=== PATIENT | female | born 1985 | race Caucasian/White ===

== ENCOUNTER 2024-11-17 21:27 | Emergency (ER) | payer SELFPAY ==
[2024-11-17 21:49] VITALS: BP 138/98; PULSE 83; RESP 20; TEMP 36.1; O2SAT 100; BMI 24.3
--- NOTE | 2024-11-17 21:53 | PC.NURSE ---
Wound irrigated with 500ml NS and betadine solution then wrapped with non-adherent dressing and gauze wrap.
== END 2024-11-17 22:06 | disposition left against medical advice (07) ==
PROVIDERS: Emergency Provider Emergency Medicine
CPT/HCPCS: 99281